=== PATIENT | male | born 1970 | race Hispanic/Latino ===

== ENCOUNTER 2018-06-19 09:20 | Emergency (ER) | payer BC ==
--- NOTE | 2018-06-19 12:12 | RAD REPORT ---
EXAM DESCRIPTION: RAD - Lumbar Spine 3 Views - 06/19/2018 11:29 am CLINICAL HISTORY: PAIN Radiculopathy COMPARISON: LUMBAR SPINE 3 VIEWS dated 05/29/2014 FINDINGS: Vertebral body heights appear maintained. No compression fracture noted. Disc spaces are m aintained. No spondylolysis or spondylolisthesis. IMPRESSION: Negative study.
--- NOTE | 2018-06-19 13:08 | EDPHYS ---
Physician Documentation [facility] Name: Ronny Linares Age: 48 yrs Sex: Male : 1970 Arrival Date: 06/19/2018 Time: 09:24 Bed 13 Private MD: Damian Howard H ED Physician Akhil Holly HPI: 06/19 15:16 This 48 yrs old Male presents to ER via Ambulatory with complaints of Back snw Pain. 15:16 The patient presents with pain that is acute, with no known mechanism of injury. The snw symptoms are located in the low back. Onset: The symptoms/episode began/occurred 3 day(s) ago, and became worse and became persistent. The pain radiates to the right gluteus fouzia. The problem was sustained house hold chores. Severity of symptoms: At their worst the symptoms were moderate, severe. The patient has experienced similar episodes in the past, multiple times. The patient has not recently seen a physician. Historical: - Allergies: :30 No Known Allergies; aa5 - PMHx: :30 None; aa5 - PSHx: :30 None; aa5 - Immunization history:: Adult Immunizations unknown. - Social history:: Smoking status: Patient uses tobacco products, denies chronic smoking, but will smoke occasionally. - Ebola Screening: : No symptoms or risks identified at this time. ROS: 15:16 Constitutional: Negative for fever, chills, and weight loss, Eyes: Negative for injury, snw pain, redness, and discharge, ENT: Negative for injury, pain, and discharge, Neck: Negative for injury, pain, and swelling, Cardiovascular: Negative for chest pain, palpitations, and edema, Respiratory: Negative for shortness of breath, cough, wheezing, and pleuritic chest pain, Abdomen/GI: Negative for abdominal pain, nausea, vomiting, diarrhea, and constipation, : Negative for injury, bleeding, discharge, and swelling, MS/Extremity: Negative for injury and deformity, Skin: Negative for injury, rash, and discoloration, Neuro: Negative for headache, weakness, numbness, tingling, and seizure. 15:16 Back: Positive for pain with movement, of the lumbar area, left low back and right low back, pain radiates down right buttock. Exam: 15:16 Constitutional: This is a well developed, well nourished patient who is awake, alert, snw and in no acute distress. Head/Face: Normocephalic, atraumatic. Eyes: Pupils equal round and reactive to light, extra-ocular motions intact. Lids and lashes normal. Conjunctiva and sclera are non-icteric and not injected. Cornea within normal limits. Periorbital areas with no swelling, redness, or edema. ENT: Nares patent. No nasal discharge, no septal abnormalities noted. Tympanic membranes are normal and external auditory canals are clear. Oropharynx with no redness, swelling, or masses, exudates, or evidence of obstruction, uvula midline. Mucous membranes moist. Neck: Trachea midline, no thyromegaly or masses palpated, and no cervical lymphadenopathy. Supple, full range of motion without nuchal rigidity, or vertebral point tenderness. No Meningismus. Chest/axilla: Normal chest wall appearance and motion. Nontender with no deformity. No lesions are appreciated. Cardiovascular: Regular rate and rhythm with a normal S1 and S2. No gallops, murmurs, or rubs. Normal PMI, no JVD. No pulse deficits. Respiratory: Lungs have equal breath sounds bilaterally, clear to auscultation and percussion. No rales, rhonchi or wheezes noted. No increased work of breathing, no retractions or nasal flaring. Abdomen/GI: Soft, non-tender, with normal bowel sounds. No distension or tympany. No guarding or rebound. No evidence of tenderness throughout. Back: No spinal tenderness. No costovertebral tenderness. Full range of motion. Skin: Warm, dry with normal turgor. Normal color with no rashes, no lesions, and no evidence of cellulitis. MS/ Extremity: Pulses equal, no cyanosis. Neurovascular intact. Full, normal range of motion. Neuro: Awake and alert, GCS 15, oriented to person, place, time, and situation. Cranial nerves II-XII grossly intact. Motor strength 5/5 in all extremities. Sensory grossly intact. Cerebellar exam normal. Normal gait. Psych: Awake, alert, with orientation to person, place and time. Behavior, mood, and affect are within normal limits. 15:20 Neuro: Exam negative for acute changes. snw Vital Signs: 09:30 BP 140 / 66; Pulse 94; Resp 18 S; Temp 97.0(TE); Pulse Ox 96% on R/A; Weight 102.06 kg aa5 (R); Height 5 ft. 8 in. (172.72 cm) (R); Pain 8/10; 09:30 Body Mass Index 34.21 (102.06 kg, 172.72 cm) aa5 MDM: 11:49 Patient medically screened. snw 15:18 Data reviewed: vital signs, nurses notes. Data interpreted: Pulse oximetry: on room air snw is 96 %. Interpretation: normal. Counseling: I had a detailed discussion with the patient and/or guardian regarding: the historical points, exam findings, and any diagnostic results supporting the discharge/admit diagnosis, the presence of at least one elevated blood pressure reading (>120/80) during this emergency department visit, radiology results, the need for outpatient follow up, to return to the emergency department if symptoms worsen or persist or if there are any questions or concerns that arise at home. 06/19 10:37 Order name: XRAY Lumbar Spine (3 Views); Complete Time: 12:28 snw Administered Medications: 13:31 Drug: Clio 5 mg-325 mg 1 tabs Route: PO; tl3 13:31 Drug: Pepcid 20 mg Route: PO; tl3 13:32 Follow up: Response: Medication administered at discharge. tl3 13:32 Drug: Valium 2 mg Route: PO; tl3 13:32 Drug: predniSONE 40 mg Route: PO; tl3 Disposition: 15:20 Co-signature as Attending Physician, Akhil Holly MD I agree with the assessment and kdr plan of care. Disposition: 06/19/18 13:07 Discharged to Home. Impression: Low back pain, Radiculopathy, lumbar region. - Condition is Stable. - Discharge Instructions: Back Pain, Adult, Hypertension, Lumbosacral Radiculopathy, Musculoskeletal Pain, Back Injury Prevention, [id number], Back Exercises, [id number], Cryotherapy, Rehydration, Adult, Heat Therapy. - Prescriptions for Prednisone 20 mg Oral Tablet - take 2 tablet by ORAL route once daily for 5 days; 10 tablet. orphenadrine citrate 100 mg Oral Tablet Sustained Release - take 1 tablet by ORAL route 2 times per day As needed; 20 tablet. Pepcid 20 mg Oral Tablet - take 1 tablet by ORAL route once daily; 20 tablet. - Work release form, Medication Reconciliation Form, Thank You Letter, Antibiotic Education, Prescription Opioid Use form. - Follow up: Damian Howard DO; When: 2 - 3 days; Reason: Recheck today's complaints, Continuance of care, Re-evaluation by your physician. Follow up: Emergency Department; When: As needed; Reason: Worsening of condition. Signatures: Dispatcher [employer] EDMS Akhil Holly MD MD [facility] Glo Nichols, LEARNING SUPPORT SERVICES DIRECTOR-C LEARNING SUPPORT SERVICES DIRECTOR-Csnw Ness Foss, RN RN aa5 Lindsey Merritt RN RN tl3 Corrections: (The following items were deleted from the chart) 13:33 13:07 06/19/2018 13:07 Discharged to Home. Impression: Low back pain; Radiculopathy, tl3 lumbar region. Condition is Stable. Forms are Medication Reconciliation Form, Thank You Letter, Antibiotic Education, Prescription Opioid Use. Follow up: Damian Howard; When: 2 - 3 days; Reason: Recheck today's complaints, Continuance of care, Re-evaluation by your physician. Follow up: Emergency Department; When: As needed; Reason: Worsening of condition. snw
--- NOTE | 2018-06-19 13:08 | ER ---
Nurse's Notes [facility] Name: Ronny Linares Age: 48 yrs Sex: Male : 1970 Arrival Date: 06/19/2018 Time: 09:24 Bed 13 Private MD: Damian Howard H Diagnosis: Low back pain;Radiculopathy, lumbar region Presentation: 06/19 09:27 Presenting complaint: Patient states: right lower back pain radiating to right leg and aa5 to pelvic area that began Saturday evening. Denies known injury. 09:27 Acuity: MARTA 3 aa5 09:27 Transition of care: patient was not received from another setting of care. Onset of aa5 symptoms was June 2018. Risk Assessment: Do you want to hurt yourself or someone else? Patient reports no desire to harm self or others. Initial Sepsis Screen: Does the patient meet any 2 criteria? No. Patient's initial sepsis screen is negative. Does the patient have a suspected source of infection? No. Patient's initial sepsis screen is negative. Care prior to arrival: None. :27 Method Of Arrival: Ambulatory aa5 Historical: - Allergies: 09:30 No Known Allergies; aa5 - PMHx: 09:30 None; aa5 - PSHx: 09:30 None; aa5 - Immunization history:: Adult Immunizations unknown. - Social history:: Smoking status: Patient uses tobacco products, denies chronic smoking, but will smoke occasionally. - Ebola Screening: : No symptoms or risks identified at this time. Screenin:00 Abuse screen: Denies threats or abuse. Denies injuries from another. Nutritional sg screening: No deficits noted. Tuberculosis screening: No symptoms or risk factors identified. Never had TB. Fall Risk None identified. Assessment: 12:00 General: Appears in no apparent distress. comfortable, well groomed, well developed, sg well nourished, Behavior is calm, cooperative, appropriate for age. Pain: Complains of pain in back Quality of pain is described as aching, crampy. Neuro: Level of Consciousness is awake, alert, obeys commands, Oriented to person, place, time, Mail Room are equal bilaterally Moves all extremities. Full function Gait is steady, shuffling, Speech is normal, Facial symmetry appears normal. Cardiovascular: Heart tones S1 S2 present Capillary refill is brisk in bilateral fingers Patient's skin is warm and dry. Chest pain is denied. Respiratory: Airway is patent Respiratory effort is even, unlabored, Respiratory pattern is regular, symmetrical. GI: No signs and/or symptoms were reported involving the gastrointestinal system. : No signs and/or symptoms were reported regarding the genitourinary system. EENT: No signs and/or symptoms were reported regarding the EENT system. Derm: Skin is pink, warm \T\ dry. Musculoskeletal: Circulation, motion, and sensation intact. Range of motion: intact in all extremities, Swelling absent Reports pain in back. 12:30 Reassessment: Patient appears in no apparent distress at this time. pt family at the sg nurses station requesting updated on POC, pt family friend and pt updated on POC. awaiting update from provider at this time, no new orders recieved. Vital Signs: 09:30 BP 140 / 66; Pulse 94; Resp 18 S; Temp 97.0(TE); Pulse Ox 96% on R/A; Weight 102.06 kg aa5 (R); Height 5 ft. 8 in. (172.72 cm) (R); Pain 8/10; 09:30 Body Mass Index 34.21 (102.06 kg, 172.72 cm) aa5 ED Course: 09:24 Patient arrived in ED. mr 09:24 Damian Howard DO is Private Physician. mr 09:29 Triage completed. aa5 09:30 Arm band placed on Patient placed in waiting room, Patient notified of wait time. aa5 11:24 X-ray completed. Patient tolerated procedure well. Patient moved to radiology via sw wheelchair. Patient moved back from radiology. 11:25 XRAY Lumbar Spine (3 Views) In Process Unspecified. EDMS 11:49 Glo Nichols FNP-C is PHCP. snw 11:49 Akhil Holly MD is Attending Physician. snw 12:00 Patient has correct armband on for positive identification. Bed in low position. Call sg light in reach. Pulse ox on. NIBP on. Warm blanket given. Head of bed elevated. 12:00 No provider procedures requiring assistance completed. sg 12:35 Russ Sanchez RN is Primary Nurse. sg 13:07 Damian Howard DO is Referral Physician. snw 13:20 Lindsey Merritt, RN is Primary Nurse. tl3 06/20 00:07 Patient did not have IV access during this emergency room visit. tl3 Administered Medications: 06/19 13:31 Drug: [place] 5 mg-325 mg 1 tabs Route: PO; tl3 13:31 Drug: Pepcid 20 mg Route: PO; tl3 13:32 Follow up: Response: Medication administered at discharge. tl3 13:32 Drug: Valium 2 mg Route: PO; tl3 13:32 Drug: predniSONE 40 mg Route: PO; tl3 Outcome: 13:07 Discharge ordered by MD. snw 13:33 Patient left the ED. tl3 13:33 Discharged to home ambulatory. tl3 13:33 Condition: good 13:33 Discharge instructions given to patient, Instructed on discharge instructions, follow up and referral plans. medication usage, Demonstrated understanding of instructions, follow-up care, medications, Prescriptions given X 2. Signatures: Dispatcher [employer] EDMS Russ Sanchez RN RN Glo Nichols, MOLD STRIPPER-C MOLD STRIPPER-Hillary Cr mr MaddoxNess stewart RN RN aa5 Lila Fay Lindsey Merritt, RN RN tl3 Corrections: (The following items were deleted from the chart) 09: 09:27 Presenting complaint: Patient states: right lower back pain radiating to right aa5 leg and to pelvic area that began Saturday evening aa5
[2018-06-19] MEDS ORDERED: HYDROCODONE/APAP 5/325 MG TAB ONE (13:29)
[2018-06-19] MEDS ORDERED: predniSONE 20 MG TAB ONE (13:30)
[2018-06-19] MEDS ORDERED: FAMOTIDINE 20 MG TAB ONE (13:30)
[2018-06-19] MEDS ORDERED: DIAZEPAM 2 MG TABLET ONE (13:30)
[2018-06-19 13:37] VITALS: BP 140/66; TEMP 97; O2SAT 96
== END 2018-06-19 13:33 | disposition home or self-care (01) ==
LOC: ER 09:20
DX: M54.16 Radiculopathy, lumbar region (principal); Z72.0 Tobacco use
CPT/HCPCS: 72100; 99284; J7512